=== PATIENT | female | born 1940 | race Caucasian/White ===

== ENCOUNTER 2018-06-09 07:45 | Day surgery (SDC) | payer MEDICARE, BC ==
[2018-06-09] MEDS ORDERED: PROPOFOL 500 MG/50 ML EMU IV ONE (07:59)
[2018-06-09] MEDS ORDERED: LIDOCAINE HCL 1% MPF 30 SOL ONE (07:59)
[2018-06-09 09:55] VITALS: BP 137/66; PULSE 62; RESP 20; TEMP 97.1; O2SAT 97
== END 2018-06-09 10:10 | disposition home or self-care (01) | DRG 951 ==
LOC: SURG 07:45
PROVIDERS: ATTEND Surgery
DX: Z12.11 Encounter for screening for malignant neoplasm of colon (principal); K57.32 Diverticulitis of large intestine without perforation or abscess without bleeding; D12.3 Benign neoplasm of transverse colon; K62.1 Rectal polyp
CPT/HCPCS: J2001; J2704

== ENCOUNTER 2018-08-09 09:34 | Day surgery (SDC) | payer MEDICARE, BC ==
[2018-08-09] MEDS ORDERED: PROPOFOL 10 MG/ML EMU IV ONE (10:04)
[2018-08-09] MEDS ORDERED: FENTANYL 100MCG/2ML SOL ONE (10:05)
[2018-08-09] MEDS ORDERED: MIDAZOLAM 2 MG/2 ML SOL ONE (10:05)
[2018-08-09] MEDS ORDERED: CEFAZOLIN SODIUM 1 GM PDS ONE (10:53)
[2018-08-09] MEDS: LIDOCAINE HCL 1% MPF 30 SOL ONE ×2 (11:05→11:16)
[2018-08-09 12:19] VITALS: BP 144/51; PULSE 64; RESP 20; TEMP 97.1; O2SAT 94
== END 2018-08-09 12:45 | disposition home or self-care (01) | DRG 74 ==
LOC: SURG 09:34
PROVIDERS: ATTEND Orthopaedic Surgery
DX: G56.01 Carpal tunnel syndrome, right upper limb (principal)
CPT/HCPCS: J0690; J2250; J3010; A6402; J2001; J2704